=== PATIENT | female | born 1985 | race Caucasian/White ===

== ENCOUNTER 2017-01-23 08:19 | Emergency (ER) | payer BC ==
[~2017-01-23 08:19] MED LIST: COLACE 100MG C100 MG PO; IBUPROFEN600 MG PO; NORCO 5-325 TA1 EACH PO; TRANDATE200 MG PO
[2017-01-23 09:24] LABS: HEMOGLOBIN 13.3 gm/dl (12.3-15.3); RED BLOOD COUNT 4.55 M/UL (4.00-5.10); WHITE BLOOD COUNT 10.8 K/UL (4.5-11.0)
[2017-01-23 09:42] LABS: BUN/CREATININE RATIO 10 (0-10)
== END 2017-01-23 14:45 ==
LOC: ER1 08:19
PROVIDERS: Emergency Medicine
DX: J02.9 Acute pharyngitis, unspecified (principal)
CPT/HCPCS: 36415; 70491; 71020; 80053; 81001; 84703; 85025; 86403; 87040; 87081; 87880; 96374; 96375; 99284; J0295; J1100; J7050; Q9962

== ENCOUNTER 2021-11-17 05:24 | Inpatient (IN) | payer BC ==
[~2021-11-17] VITALS: Ht 167.6 cm; Wt 112.9 kg
[~2021-11-17 05:24] MED LIST changes: +AUGMENTIN 875-1 EACH PO
[2021-11-17] MEDS ORDERED: PRENATABS RX T1 EACH PO (06:17)
[2021-11-17 06:22] LABS: HEMOGLOBIN 10.6 gm/dl (12.3-15.3); RED BLOOD COUNT 3.91 M/UL (4.00-5.10); WHITE BLOOD COUNT 8.3 K/UL (4.5-11.0)
[2021-11-18 02:04] LABS: HEMOGLOBIN 9.5 gm/dl (12.3-15.3)
[2021-11-19] MEDS ORDERED: IBUPROFEN600 MG PO (11:29)
[2021-11-19] MEDS ORDERED: COLACE 100MG C100 MG PO (11:29)
[2021-11-19] MEDS ORDERED: HYDROCODON-ACE1 EAC6 PO (11:29)
== END 2021-11-19 15:46 | disposition home or self-care (01) | DRG 786 ==
LOC: OB 05:24
PROVIDERS: ADMIT Obstetrics & Gynecology
PROC: 10D00Z1 Extraction of Products of Conception, Low, Open Approach (ICD-10-PCS; 2021-11-17)
PROC: 3E0234Z Introduction of Serum, Toxoid and Vaccine into Muscle, Percutaneous Approach (ICD-10-PCS; principal; 2021-11-17 07:30)
DX: O36.5932 Maternal care for other known or suspected poor fetal growth, third trimester, fetus 2 (principal); O60.14X2 Preterm labor third trimester with preterm delivery third trimester, fetus 2; O99.354 Diseases of the nervous system complicating childbirth; O99.892 Other specified diseases and conditions complicating childbirth; M26.649 Arthritis of unspecified temporomandibular joint; Z20.822 Contact with and (suspected) exposure to COVID-19; O34.211 Maternal care for low transverse scar from previous cesarean delivery; G43.909 Migraine, unspecified, not intractable, without status migrainosus; O30.033 Twin pregnancy, monochorionic/diamniotic, third trimester; Z98.890 Other specified postprocedural states; Z37.0 Single live birth; Z3A.35 35 weeks gestation of pregnancy; Z82.49 Family history of ischemic heart disease and other diseases of the circulatory system; Z83.3 Family history of diabetes mellitus; Z82.3 Family history of stroke; Z81.8 Family history of other mental and behavioral disorders; Z83.42 Family history of familial hypercholesterolemia; Z80.3 Family history of malignant neoplasm of breast; Z23 Encounter for immunization
CPT/HCPCS: 36415; 81001; 82800; 85014; 85018; 85025; 90715; C9113; J0690; J1650; J1885; J2274; J2370; J2405; J2590; J3010; J7120